=== PATIENT | female | born 1995 | race Caucasian/White ===

== ENCOUNTER 2020-11-24 14:32 | Emergency (ER) | payer BC, SELFPAY ==
[2020-11-24 14:32] VITALS: BP 124/90; BP 140/105; PULSE 87; RESP 19; TEMP 37; O2SAT 100; BMI 25.2
--- NOTE | 2020-11-24 15:33 | HMH.EDUTC ---
[facility] [place] Impression: Encounter for laboratory testing for COVID-19 virus Disposition: Home, Self-Care Condition on Discharge: Good Instructions: DI for COVID-19 (Suspected or Confirmed ), Coronavirus Disease 2019, Preventing the Spread of Coronavirus Discharge Instructions Additional Instructions: *Monitor Temp, Over the counter Motrin or Tylenol as directed/as needed Tylenol every 4 hours and Motrin every 6 hours (as long as your family doctor has told you that you can take it) for fever or pain. and straight to ER if unable to lower temp less than 101.0 after medication given *Warm salt water gargles may help to soothe the throat *Throat Lozenges *Warm fluids like tea with honey may help to soothe the throat *Sleep elevated *Humidifier/Vaporizer *Flonase 2 sprays in each nostril daily but be aware that it may take 2-3 days before you notice improvement Follow up IMMEDIATELY for new or worsening symptoms or no Noticeable improvement over the next 48-72 hours. 911 for difficulty breathing or swallowing You were tested for today for COVID19 your test result should be back in the next 24-48 hours, you may call to the [facility] to see if your test results are back in the next 48 hours [phone] [facility] hours are 9am-9pm You was given a handout with instructions for Self Quarantine and Self isolation for while you wait on test results and what to do if they are positive If you are positive the Health Dept will be contacting you also Make sure to take your Vitamins Vit. C Vit D and Zinc if you can take them Prescriptions: Fluticasone Propionate [Flonase 50mcg nasal spray 16gm] 1 spr NS DAILY #1 ml Transmission Status: Received by [id number] Referrals: Man Subramanian MD [Primary Care Provider] - As needed Forms: Work/School Release Medical Decision Making - Gerard Inquiry Pt receiving controlled substance: No Gerard was queried for this patient: No Vital Signs: 11/24/20 14:32 11/24/20 15:50 Temperature 98.6 F 98.6 F Temperature Source Oral Pulse Rate 87 Pulse Rate [Left Radial] 87 Respiratory Rate 19 19 Blood Pressure 124/90 Blood Pressure [Right Arm] 124/90 Blood Pressure Mean [Right Arm] 101 Blood Pressure Source Automatic Cuff Blood Pressure Source [Right Arm] Automatic Cuff Blood Pressure Position Sitting Blood Pressure Position [Right Arm] Sitting 02 Sat by Pulse Oximetry 100 Oxygen Delivery Method Room Air Orders (Tests/Meds): ORDERS Category Date Time Status Covid-19 Nasal PCR ([facility]) Routine Lab 11/24/20 15:15 [place] [facility] [place] - General Stated complaint: covid exposure Time Seen by Provider: 11/24/20 15:33 Mode of Arrival: Ambulatory Source of Information: Patient Limitations: No Limitations Description of Symptoms (Recalled from Triage Doc. by RN): tested positive for covid 2 days ago, sore throat HEENT Symptoms (Recalled from RN notes): Yes Resp Symptoms (Recalled from RN notes): No Skin Symptoms (Recalled from RN notes): No MS Symptoms (Recalled from RN notes): No Functional Status (Recalled from RN notes): wnl - History of Present Illness Provider Complaint: Patient state that her recently tested positive for COVID states that she has been having nasal congestion and sore throat and wanted to get tested for COVID Denies fever, denies SOA - Related Data Home Medications Medication Instructions Recorded Confirmed desogestrel-e.estradiol 0.15 1 tab PO 28 Days tab 06/14/18 08/22/18 mg-0.02 mg(21)/e.estrad 0.01 mg(5) tablet Previous Rx's Medication Instructions Recorded Fluticasone Propionate [Flonase 1 spr NS DAILY #1 ml 11/24/20 50mcg nasal spray 16gm] Allergies Allergy/AdvReac Type Severity Reaction Status Date / Time No Known Allergies Allergy Verified 08/22/18 15:54 - Worker's Comp Is this a Worker's Comp case?: No [facility] History - Hepatitis A Screen Drug use history?: No High risk sexual b
[2020-11-24 15:50] VITALS: BP 124/90; PULSE 87; RESP 19; TEMP 37; O2SAT 100
--- NOTE | 2020-11-25 07:41 | PC.NURSE ---
spoke with patient and notified her of positive result.
== END 2020-11-24 15:51 | disposition home or self-care (01) ==
PROVIDERS: Emergency Provider Nurse Practitioner; PCP Family Medicine
DX: U07.1 COVID-19 (principal)
CPT/HCPCS: 99203; G0463; U0003

== ENCOUNTER → 2020-11-29 08:04 | Outpatient (CLI) | payer BC, SELFPAY ==
[2020-11-29] VITALS (8 sets, daily range): BP systolic 107–118; BP diastolic 64–72; PULSE 73–88; RESP 16–18; TEMP 37.4; O2SAT 95–96
== END ==
PROVIDERS: PCP Family Medicine; Visit Provider Emergency Medicine
DX: U07.1 COVID-19 (principal)
CPT/HCPCS: 96365